=== PATIENT | female | born 1985 | race Caucasian/White ===

== ENCOUNTER 2021-04-18 07:30 | Emergency (ER) | payer MEDICAID ==
--- NOTE | 2021-04-18 11:19 | EDM.PDOCBH ---
ED HPI GENERAL MEDICAL PROBLEM - General Chief Complaint: Drug or Alcohol Abuse Stated Complaint: EVAL Time Seen by Provider: 04/18/21 11:13 Source of Information: Reports: Patient, Family, RN Notes Reviewed History Limitations: Reports: No Limitations - History of Present Illness INITIAL COMMENTS - FREE TEXT/NARRATIVE: 35-year-old female presents emergency department today requesting evaluation for alcohol detoxification. She last used alcohol last night. She has no other complaints - Related Data Allergies Allergy/AdvReac Type Severity Reaction Status Date / Time No Known Allergies Allergy Verified 04/18/21 10:58 Home Meds: Home Meds Venlafaxine [Effexor XR] 150 mg PO DAILY 04/18/21 [History] busPIRone [Buspar] 15 mg PO DAILY 04/18/21 [History] lamoTRIgine [Lamotrigine] 25 mg PO DAILY 04/18/21 [History] Past Medical History - Past Health History Medical/Surgical History: Denies Medical/Surgical History Social & Family History - Tobacco Use Tobacco Use Status *Q: Current Every Day Tobacco User Years of Tobacco use: 20 Packs/Tins Daily: 0.5 - Alcohol Use Days Per Week of Alcohol Use: 7 Number of Drinks Per Day: 3 Total Drinks Per Week: 21 - Recreational Drug Use Recreational Drug Use: Yes Recreational Drug Type: Reports: Methamphetamine Recreational Drug Use Frequency: Daily ED ROS GENERAL - Review of Systems Review Of Systems: See Below Constitutional: Reports: No Symptoms Respiratory: Reports: No Symptoms Cardiovascular: Reports: No Symptoms GI/Abdominal: Reports: No Symptoms ED EXAM, BEHAVIORAL HEALTH - Physical Exam Exam: See Below Exam Limited By: No Limitations General Appearance: Alert, WD/WN, No Apparent Distress Respiratory/Chest: No Respiratory Distress, Lungs Clear, Normal Breath Sounds, No Accessory Muscle Use, Chest Non-Tender Cardiovascular: Regular Rate, Rhythm, No Murmur GI/Abdominal: Soft, Non-Tender COURSE, BEHAVIORAL HEALTH COMP - Course Vital Signs: Last Vital Signs Temp 97.7 F 04/18/21 11:10 Pulse 85 04/18/21 11:10 Resp 12 04/18/21 11:10 BP 141/110 H 04/18/21 11:10 Pulse Ox 100 04/18/21 11:10 Orders, Labs, Meds: Laboratory Tests 11/28/21 11/28/21 11/28/21 Range/Units 11:22 11:24 11:24 WBC 12.5 H (4.5-11.0) K/uL RBC 4.78 (3.30-5.50) M/uL Hgb 12.0 (12.0-15.0) g/dL Hct 38.0 (36.0-48.0) % MCV 80 (80-98) fL MCH 25 L (27-31) pg MCHC 32 (32-36) % Plt Count 292 (150-400) K/uL Neut % (Auto) 60.2 (36-66) % Lymph % (Auto) 31.2 (24-44) % [place] % (Auto) 5.3 (2-6) % Eos % (Auto) 2.2 (2-4) % Baso % (Auto) 1.1 H (0-1) % Urine Opiates Screen Negative (NEGATIVE) Ur Oxycodone Screen Negative (NEGATIVE) Urine Methadone Screen Negative (NEGATIVE) Ur Propoxyphene Screen Negative (NEGATIVE) Ur Barbiturates Screen Negative (NEGATIVE) Ur Tricyclics Screen Negative (NEGATIVE) Ur Phencyclidine Scrn Negative (NEGATIVE) Ur Amphetamine Screen Negative (NEGATIVE) U Methamphetamines Scrn Negative (NEGATIVE) Urine MDMA Screen Negative (NEGATIVE) U Benzodiazepines Scrn Negative (NEGATIVE) U Cocaine Metab Screen Negative (NEGATIVE) U Marijuana (THC) Screen Negative (NEGATIVE) Ethyl Alcohol < 3 mg/dL Departure - Departure Time of Disposition: 12:02 Disposition: DC/Tfer to Inpt Rehab Fac 62 Condition: Fair Clinical Impression: Alcohol abuse - Discharge Information Instructions: Alcohol Use Disorder Referrals: PCP,None [Primary Care Provider] - Forms: ED Department Discharge Additional Instructions: Please report to [facility] detoxification facility for further treatment Sepsis Event Note (ED) - Evaluation Sepsis Screening Result: No Definite Risk - Focused Exam Vital Signs: Vital Signs Temp Pulse Resp BP Pulse Ox 04/18/21 11:10 97.7 F 85 12 141/110 H 100 - Assessment/Plan Plan: Assessment Acuity = acute Site and laterality = alcohol abuse and dependence Etiology = EtOH Manifestations = none Location of injury = Home Lab values = WBC elevated 12.5 consistent leukocytosis of unclear significance, alcohol was negative urine drug screen negative hemoglobin within normal limits Plan My medical opinion she is of average risk to go to alcohol detoxification she will be transported with family members This note was dictated using [email or web address] voice recognition software please call with any questions on syntax or grammar.
== END 2021-04-18 12:51 ==
LOC: JP.ED 07:30
DX: F10.10 Alcohol abuse, uncomplicated (principal); Y90.0 Blood alcohol level of less than 20 mg/100 ml; Z72.0 Tobacco use
CPT/HCPCS: 36415; 80305-QW; 80307; 85025; 99284